=== PATIENT | female | born 1945 | race Caucasian/White ===

== ENCOUNTER 2023-12-27 09:14 | Emergency (ER) | payer BC, MEDICARE ==
[~2023-12-27] VITALS: Ht 162.6 cm; Wt 64.0 kg
[2023-12-27 09:15] VITALS: O2SAT 93
[2023-12-27 09:52] LABS: BASOPHILS % 0.7 % (0.0-2.0); EOSINOPHILS % 1.9 % (0.0-5.0); HEMATOCRIT. 35.9 % (36.0-48.0); LYMPHOCYTES % 25.3 % (20.0-50.0); MEAN CORPUSCULAR HGB CONC 33.3 g/dL (31.0-37.0); MEAN CORPUSCULAR VOLUME 93.1 fL (81.0-99.0); MEAN PLATELET VOLUME 7.8 fl (7.4-10.4); MONOCYTES % 4.7 % (2.0-8.0); NEUTROPHILS % 67.4 % (40.0-76.0); PLATELET 247 x1000/uL (130-400); RED BLOOD CELL COUNT 3.85 mill/uL (4.2-5.4); RED CELL DISTRIBUTION WIDTH 12.7 % (11.6-14.6); WHITE BLOOD COUNT 5.9 x1000/uL (4.5-11.0)
[2023-12-27] MEDS: SODIUM CHLORIDE 0.9% 1000ML BAG (SEPSIS BOLUS) IV ONE (10:18)
[2023-12-27] MEDS: LEVETIRACETAM 1000MG PREMIX 100 ML IV ONE (10:21)
[2023-12-27 10:22] LABS: INR 1.2; PROTHROMBIN TIME 12.8 sec (9.6-11.0)
[2023-12-27 10:37] LABS: CHLORIDE 104 mEq/L (98-107); POTASSIUM 3.6 mEq/L (3.5-5.1); SODIUM 136 mEq/L (136-145)
[2023-12-27 10:38] LABS: CALCIUM 10.3 mg/dL (8.7-10.4); CARBON DIOXIDE 22 mEq/L (21-32)
[2023-12-27 10:43] LABS: CREATININE 1.1 mg/dL (0.6-1.0); GLUCOSE 176 mg/dL (70-105)
[2023-12-27 10:44] LABS: TROPONIN I HIGH SENSITIVITY 5 ng/L (3.0-34); UREA NITROGEN BLOOD 26 mg/dL (9-23)
[2023-12-27 10:45] LABS: ETHANOL BLOOD < 10 mg/dL (<10)
[2023-12-27 10:48] LABS: THYROID STIMULATING HORMONE 2.41 uIU/mL (0.55-4.78)
[2023-12-27 10:52] LABS: LACTIC ACID 3.8 mmol/L (0.4-2.0)
[2023-12-27 10:57] LABS: AMMONIA < 17 uMol/L (<32)
[2023-12-27 11:05] LABS: CLARITY URINE CLEAR (CLEAR); COLOR URINE YELLOW (YELLOW); GLUCOSE URINE NEGATIVE (NEGATIVE); KETONES URINE NEGATIVE (NEGATIVE); LEUKOCYTE ESTERASE URINE 2+ (NEGATIVE); NITRITE URINE NEGATIVE (NEGATIVE); OCCULT BLOOD URINE NEGATIVE (NEGATIVE); PH URINE 6.5 (4.5-8.0); PROTEIN URINE NEGATIVE (NEGATIVE); SPECIFIC GRAVITY URINE 1.012 (1.005-1.030); UROBILINOGEN URINE 0.2 E.U./dL (0.2-1.0)
[2023-12-27 11:33] LABS: *AMPHETAMINES SCREEN URINE NEGATIVE (NEGATIVE); *BARBITURATES SCREEN URINE NEGATIVE (NEGATIVE); *BENZODIAZEPINES SCREEN URINE NEGATIVE (NEGATIVE); *COCAINE SCREEN URINE NEGATIVE (NEGATIVE); METHADONE URINE SCREEN NEGATIVE (NEGATIVE); OPIATES URINE SCREEN NEGATIVE (NEGATIVE); SQUAMOUS EPITHELIAL CELL URINE 1+ /lpf (RARE/1+)
[2023-12-27 11:34] LABS: CANNABINOID URINE SCREEN NEGATIVE (NEGATIVE); ECSTASY MDMA SCREEN URINE NEGATIVE (NEGATIVE); PHENCYCLIDINE URINE SCREEN NEGATIVE (NEGATIVE); RBC URINE 0-2 /hpf (0-2)
[2023-12-27 11:36] LABS: BACTERIA URINE TRACE
[2023-12-27 12:27] LABS: TROPONIN I HIGH SENSITIVITY 82 ng/L (3.0-34)
[2023-12-27] MEDS: NICARDIPINE 40MG/200ML PREMIX 200 ML IV PRN (13:06)
[2023-12-27 17:17] LABS: TROPONIN I HIGH SENSITIVITY 166 ng/L (3.0-34)
[2023-12-27] MEDS: IOHEXOL-350 100 ML BOTTLE ONE (18:18)
[2023-12-27 20:00] VITALS: BP 139/58; PULSE 72; RESP 16; TEMP 98.2
== END 2023-12-27 18:59 | disposition short-term general hospital (02) ==
LOC: ER 09:56
DX: I60.8 Other nontraumatic subarachnoid hemorrhage (principal); E11.9 Type 2 diabetes mellitus without complications; I10 Essential (primary) hypertension
CPT/HCPCS: 80305; 80048; 81003; 80320; 82140; 83880; 83605; 84443; 85025; 85379; 85610; 87040; 87086; 84484; 36415; 84145; 71045; 70496; 70498; 70450; 93005; 96365; 96375; 99291; 99292; Q9967; J1953; J7030; G0480